=== PATIENT | male | born 1945 | race African-American/Black ===

== ENCOUNTER 2021-03-24 10:44 | Emergency (ER) | payer MEDICARE ==
[~2021-03-24] VITALS: Ht 175.3 cm; Wt 111.0 kg
[2021-03-24] MEDS ORDERED: VALACYCLOVIR HCL1 GM PO ×2 (14:26→15:13)
[2021-03-24] MEDS ORDERED: PERCOCET 5/325M1 TAB PO ×2 (14:26→15:14)
[2021-03-24] MEDS ORDERED: PREDNISONE20 MG PO ×2 (14:26→15:14)
[2021-03-24 14:30] VITALS: BP 107/55
[2021-03-24] MEDS ORDERED: TORADOL PO (15:14)
== END 2021-03-24 15:24 | disposition home or self-care (01) ==
LOC: ED 10:44
DX: B02.9 Zoster without complications (principal); I10 Essential (primary) hypertension

== ENCOUNTER 2021-09-27 09:06 | Inpatient (IN) | payer MEDICARE ==
[2021-09-27] VITALS (52 sets, daily range): BP systolic 97–150; BP diastolic 52–103
[~2021-09-27] VITALS: Ht 175.3 cm; Wt 100.0 kg
[~2021-09-27 09:06] MED LIST: PERCOCET 5/325M1 TAB PO; PREDNISONE20 MG PO; TORADOL PO; VALACYCLOVIR HCL1 GM PO
--- NOTE | 2021-09-27 09:07 | NUR ---
PATIENT TO ROOM VIA EMS.
[2021-09-27 09:36] LABS: HEMATOCRIT 41.5 % (39.0-50.0); HEMOGLOBIN 12.6 g/dl (14.0-18.0); IMMATURE GRANULOCYTES 0.2 % (0.0-5.0); MEAN CORPUSCULAR HGB 23.1 pG CALC (26.0-32.0); MEAN CORPUSCULAR HGB CONC 30.4 g/dL CAL (32.0-36.0); NEUT# 21.08 thou/uL (1.82-7.42); RED BLOOD COUNT 5.46 mill/uL (4.70-6.10); RED CELL DISTRI WIDTH 19.2 % (11.5-15.5)
[2021-09-27 09:46] LABS: PROTHROMBIN TIME 10.1 SECONDS (9.0-12.5)
[2021-09-27 09:54] LABS: ALBUMIN 3.6 g/dL (3.2-5.0); ALKALINE PHOSPHATASE 166 u/l (38-126); ANION GAP 18 (6-22 (CALC)); BILIRUBIN, TOTAL 0.2 mg/dL (0.0-1.4); BUN 26 mg/dL (8-23); BUN/CREATININE RATIO 17 (12-20 (CALC)); CARBON DIOXIDE 24 mmol/l (22-30); CHLORIDE 99 mmol/l (95-108); CREATININE 1.5 mg/dL (0.7-1.3); GFR FOR AFR.AMER. 55 ML/MIN (>=60 (CALC)); GFR OTHER RACES 45 ML/MIN (>=60 (CALC)); POTASSIUM 3.3 mmol/l (3.5-5.1); SGOT/AST 27 u/l (19-48); SODIUM 138 mmol/l (137-146); TOTAL PROTEIN 7.1 g/dL (6.3-8.2)
--- NOTE | 2021-09-27 11:47 | NUR ---
Reassessment of patient completed. No distress noted.
[2021-09-27 12:24] LABS: URINE BILIRUBIN - DIPSTICK NEGATIVE (NEGATIVE); URINE BLOOD DIPSTICK TRACE-INTACT (NEGATIVE); URINE COLOR YELLOW; URINE GLUCOSE - DIPSTICK NEGATIVE (NEGATIVE); URINE KETONE NEGATIVE (NEGATIVE); URINE LEUK ESTERASE NEGATIVE (NEGATIVE); URINE PROTEIN - DIPSTICK NEGATIVE (NEG-TRACE); URINE UROBILINOGEN - DIPSTICK 0.2 E.U./dL (0.2)
[2021-09-27 12:40] LABS: URINE NITRITE - DIPSTICK NEGATIVE (Negative)
--- NOTE | 2021-09-27 13:45 | NUR ---
Reassessment of patient completed. No distress noted.
[2021-09-27 13:56] LABS: C-REACTIVE PROTEIN 3.5 mg/dL (0-0.9); MAGNESIUM 1.8 mg/dL (1.6-2.3)
--- NOTE | 2021-09-27 15:03 | NUR ---
PATIENT TO ICU ROOM 8
[2021-09-27] MEDS ORDERED: METOPROLOL SUCC50 MG PO (15:48)
[2021-09-27] MEDS ORDERED: TAMSULOSIN HCL0.4 MG PO (15:48)
[2021-09-27] MEDS ORDERED: HYDROCHLOROT25 MG PO (15:48)
--- NOTE | 2021-09-27 16:00 | NUR ---
THIS NURSE TOOK OVER CARE OF PT FROM AIDAN GREENE. NIHSS PERFORMED AND SCORE OF 1 GIVEN. 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 BED SIDE SWALLOW EVAL PERFORMED AND PASSED. PT GIVEN HALF OF A TURKEY WRAP AND A WATER. SAFETY PRECAUTIONS IN PLACE.
--- NOTE | 2021-09-27 18:41 | NUR ---
ROUNDING COMPLETED. MEND SCORE UNCHANGED. PT ATE 100% OF DINNER W/ NO ASSISTANCE. SAFETY PRECAUTIONS MAINTAINED.
--- NOTE | 2021-09-27 19:00 | NUR ---
COMPLETED NIH STROKE ASSESSMENT AT BEDSIDE WITH AIDAN RAMOS. PT ALERT ORIENTED, FOLLOWING COMMANDS. 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 VITAL SIGNS ARE WITHIN NORMAL LIMITS. PT DENIES PAIN AT THIS TIME. CALL LIGHT AND PERSONAL BELONGINGS ARE WITHIN REACH. PT BEING CLOSELY MONITORED.
--- NOTE | 2021-09-27 19:00 | NUR ---
REPORT GIVEN TO AIDAN HAGEN. NIHSS PERFORMED AT BEDSIDE. PT SCORE REMAINS A 1 R/T PRE-EXISTING ISSUE W/ LUE.
--- NOTE | 2021-09-27 19:30 | NUR ---
PATIENT MEND EXAM PREFORMED AT THIS TIME NO CHANGES FROM PREVIOUS EXAM. PATIENT IS ALERT AND ORIENTED AT THIS TIME. SIDERAILS ARE UP CALL LIGHT IS WITHIN REACH.
--- NOTE | 2021-09-27 20:00 | NUR ---
MEND EXAM DONE AND NO CHANGE FROM PREVIOUS EXAM.
--- NOTE | 2021-09-27 20:32 | NUR ---
MEND EXAM REMAINS UNCHANGED AT THIS TIME. PATIENT ALERT AND ORIENTED X 3
--- NOTE | 2021-09-27 21:00 | NUR ---
MEND EXAM PREFORMED AND NO CHANGES FROM PRIOR EXAM. WILL CONTINUE TO MONITOR.
--- NOTE | 2021-09-27 21:29 | NUR ---
MEND EXAM DONE AT THIS TIME AND REMAINS UNCHANGED FROM PREVIOUS EXAM. PATIENT REMAINS ALERT AND ORIENTED AT THIS TIME. SIDERAILS ARE UP CALL LIGHT WITHIN REACH. WILL CONTINUE TO MONITOR.
--- NOTE | 2021-09-27 21:58 | NUR ---
PATIENT LAYING IN BED WATCHING TV AT THIS TIME. MEND EXAM PREFORMED AND NO NOTED CHANGES SINCE PREVIOUS EXAM. SIDERAILS ARE UP CALL LIGHT IS WITHIN REACH WILL CONTINUE TO MONITOR. PATIENT EDUCATED THAT MEND EXAM WILL NOW BE PREFORMED HOURLY AND PATIENT VERBALIZES UNDERSTANDING.
--- NOTE | 2021-09-27 23:01 | NUR ---
MEND EXAM REMAINS UNCHANGED AT THIS TIME.
[2021-09-28] VITALS (45 sets, daily range): BP systolic 53–154; BP diastolic 23–86
--- NOTE | 2021-09-28 00:01 | NUR ---
PATIENT RESTING IN BED AT THIS TIME. PATIENT DENIES ANY PAIN OR NEEDS AT THIS TIME. PATIENT MEND EXAM DONE AND REMAINS UNCHANGED AT THIS TIME FROM PREVIOUS REPORT. PATIENT CARDIA MONITOR SHOWING HR OF 81 AND SINUS RHYTHM. PATIENT IS ON ROOM AIR AND SPO2 CURRENTLY IS 97% SIDERAILS ARE UP CALL LIGHT IS WITHIN REACH WILL CONTINUE TO MONITOR.
--- NOTE | 2021-09-28 00:59 | NUR ---
MEND EXAM SHOWS NO CHANGES FROM PREVIOUS SCORE. WILL CONTINUE TO MONITOR.
--- NOTE | 2021-09-28 01:59 | NUR ---
PATIENT ALERT AND ORIENTED X 3 AT THIS TIME. MEND EXAM PREFORMED AND REMAINS UNCHANGED SINCE PREVIOUS EXAM. SIDERAILS ARE UP CALL LIGHT IS WITHIN REACH WILL CONTINUE TO MONITOR.
--- NOTE | 2021-09-28 03:06 | NUR ---
PATIENT AWAKEN AT THIS TIME AND MEND EXAM PREFORM AND NO CHANGES NOTED SINCE LAST EXAM. WILL CONTINUE TO MONIOTOR.
--- NOTE | 2021-09-28 04:00 | NUR ---
MEND EXAM SHOWS NO CHANGE.
[2021-09-28 04:58] LABS: HEMATOCRIT 36.7 % (39.0-50.0); HEMOGLOBIN 11.1 g/dl (14.0-18.0); MEAN CELL VOLUME 76.6 fL CALC (80.0-100.0); MEAN CORPUSCULAR HGB 23.2 pG CALC (26.0-32.0); MEAN CORPUSCULAR HGB CONC 30.2 g/dL CAL (32.0-36.0); RED BLOOD COUNT 4.79 mill/uL (4.70-6.10); RED CELL DISTRI WIDTH 18.6 % (11.5-15.5)
--- NOTE | 2021-09-28 05:02 | NUR ---
NO CHANGE IN MEND EXAM AT THIS TIME.
[2021-09-28 05:17] LABS: ANION GAP 10 (6-22 (CALC)); BUN 26 mg/dL (8-23); BUN/CREATININE RATIO 21 (12-20 (CALC)); CARBON DIOXIDE 26 mmol/l (22-30); CHLORIDE 107 mmol/l (95-108); CREATININE 1.3 mg/dL (0.7-1.3); GFR FOR AFR.AMER. > 60 ML/MIN (>=60 (CALC)); GFR OTHER RACES 53 ML/MIN (>=60 (CALC)); MAGNESIUM 1.8 mg/dL (1.6-2.3); SODIUM 140 mmol/l (137-146)
--- NOTE | 2021-09-28 06:06 | NUR ---
PATIENT AWAKEN FROM SLEEP AT THIS TIME. MEND EXAM GIVEN AND NO CHANGES NOTED FROM PREVIOUS EXAM AT THIS TIME.
--- NOTE | 2021-09-28 09:14 | NUR ---
PT IS ALERT AND ORIENTED X 3. LUNGS CLEAR WITH DIMINISHED BASES, RA. ABDOMEN DISTENDED, SOFT, BM 2 DAYS AGO. PT SEEN BY DR BOYLE THIS MORNING, NO DEFICITS NOTED. IVF LOWERED TO 50 ML/HR FROM 100 ML/HR. POTASSIUM 40 MEQ PROVIDED. FAMILY AT BEDSIDE AT THIS TIME. PT AWARE OF SCHEDULED MRI AND CHEST XRAY.
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
--- NOTE | 2021-09-28 20:07 | NUR ---
HEAD-TO-TOE ASSESSMENT COMPLETED. NIHSS COMPLETED, SCORE OF 1 FOR ATAXIA TO LUE R/T PRE-EXISTING CONDITION. VSS ON RA, O2 96%, HR 106 ST. PT REPOSITIONED ON TO R SIDE. SAFETY PRECAUTIONS IN PLACE.
--- NOTE | 2021-09-28 21:30 | NUR ---
PT O2 DROPPED TO 80% WHILE SLEEPING. THIS NURSE ASSESSED PT AND WOKE HIM UP. PT STATED HE FELT FINE, O2 SAT RETURNED TO 97%. ABOUT 10 MINUTES LATER PT WENT BACK TO SLEEP, O2 SAT DROPPED TO 82%. THIS NURSE APPLIED 2 L/MIN N/C. PT O2 SAT CURRENTLY 98%. ALL OTHER VS REMAIN STABLE.
--- NOTE | 2021-09-28 23:24 | NUR ---
ROUNDING COMPLETED. PT APPEARS TO BE RESTING COMFORTABLY. VSS ON 2 L/MIN N/C, O2 98%, HR 89 BPM, NSR. SAFETY PRECAUTIONS MAINTIANED.
[2021-09-29] VITALS (17 sets, daily range): BP systolic 64–130; BP diastolic 38–78
--- NOTE | 2021-09-29 01:37 | NUR ---
ROUNDING COMPLETED. PT APPEARS TO BE RESTING COMFORTABLY. VSS ON 2 L/MIN N/C, O2 99%, HR 81 BPM NSR. SAFETY PRECAUTIONS MAINTAINED.
--- NOTE | 2021-09-29 03:11 | NUR ---
ROUNDING COMPLETED. PT APPEARS TO BE RESTING COMFORTABLY. VSS ON 2 L/MIN N/C. O2 99%, HR 81 BPM NSR. SAFETY PRECAUTIONS MAINTAINED.
[2021-09-29 05:15] LABS: HEMOGLOBIN 11.2 g/dl (14.0-18.0); IMMATURE GRANULOCYTES 0.3 % (0.0-5.0); MEAN CELL VOLUME 78.7 fL CALC (80.0-100.0); MEAN CORPUSCULAR HGB 23.2 pG CALC (26.0-32.0); MEAN CORPUSCULAR HGB CONC 29.5 g/dL CAL (32.0-36.0); NEUT# 7.57 thou/uL (1.82-7.42); RED BLOOD COUNT 4.83 mill/uL (4.70-6.10); RED CELL DISTRI WIDTH 18.9 % (11.5-15.5)
[2021-09-29 05:26] LABS: BUN 23 mg/dL (8-23); BUN/CREATININE RATIO 19 (12-20 (CALC)); CARBON DIOXIDE 31 mmol/l (22-30); CHLORIDE 110 mmol/l (95-108); CREATININE 1.2 mg/dL (0.7-1.3); GFR FOR AFR.AMER. > 60 ML/MIN (>=60 (CALC)); GFR OTHER RACES 59 ML/MIN (>=60 (CALC)); SODIUM 143 mmol/l (137-146)
--- NOTE | 2021-09-29 05:30 | NUR ---
ROUNDING COMPLETED. PT APPEARS TO BE RESTING COMFORTABLY. VSS ON 2 L/MIN N/C, O2 100%, HR 83 BPM NSR. SAFETY PRECAUTIONS MAINTAINED.
[2021-09-29 05:36] LABS: ANION GAP 6 (6-22 (CALC)); POTASSIUM 4.1 mmol/l (3.5-5.1)
--- NOTE | 2021-09-29 08:46 | NUR ---
PT SEEN AWAKE, ALERT, ORIENTED X 3. PT STATES THAT HE FEELS WEAK STILL. LUNGS CLEAR, SLIGHTLY DECREASED IN BASES, RA. DR BOYLE HAS SEEN PT THIS AM, DISCUSSED REHAB AT FACILITY VS HOME. PT PREFERS HOME. NO ACUTE DISTRESS, PT ABLE TO FEED HIMSELF BREAKFAST.
--- NOTE | 2021-09-29 10:51 | NUR ---
PT ASSISTED OOB INTO CHAIR, ABLE TO BEAR WEIGHT WELL AND MOVE FEET. PT WITH URINAL BETWEEN LEGS PER LASIX GIVEN. PT AWARE OF PENDING TRANSFER TO MED/SURG.
--- NOTE | 2021-09-29 12:15 | NUR ---
PT TAKEN TO ROOM 278 WITHOUT INCIDENT, REPORT WAS TO [facility].
--- NOTE | 2021-09-29 12:18 | NUR ---
PT ARRIVED VIA STRETCHER WITH SADDLE STITCHING MACHINE OPERATOR AND NURSE TECH. PT ABLE TO TRANSFER TO BED WITH 1 PERSON ASSIST. TELE MONITOR IN [place], CONTINOUS MONITORING PER ED. STATES NO PAIN AT THIS TIME. FALL/SAFTEY PRECAUTION IN PLACE. CALL LIGHT WITHIN REACH.
--- NOTE | 2021-09-29 14:58 | NUR ---
PT SLEEPING UPON ENTERING ROOM. NO DISTRESS NOTED. BREATHING EVENA ND UNLABORED. IV PATENT. TELE MONITOR IN PLACE. CONTINOUS MONTIORING PER ED. FALL/SAFETY PRECAUTION IN PLACE. CALL LIGHT WITHIN REACH
--- NOTE | 2021-09-29 16:00 | NUR ---
PT RESTING WATCHING TV. STATES NO PAIN AT THIS TIME. TELE MONTIOR IN PLACE, COTNINOUS MONITORING PER ED. FALL/SAFTEY PRECAUTIONI IN PLACE. CALL LIGHT WITHINR REACH
--- NOTE | 2021-09-29 16:26 | NUR ---
FAMILY MEMBERS AT BEDSIDE
--- NOTE | 2021-09-29 19:15 | NUR ---
PATIENT ALERT AND ORIENTED. ABLE TO MAKE NEEDS KNOWN. ASSESSMENT COMPLETE. NO SIGNS OF DISTRESS NOTED. NO COMPLAINTS OF PAIN. BED REMAINS IN LOW POSITION. CALL SHERMAN IN REACH.
[2021-09-30] VITALS (8 sets, daily range): BP systolic 94–154; BP diastolic 57–82
--- NOTE | 2021-09-30 00:12 | NUR ---
CALL SHERMAN ANSWERED. URINAL EMPTIED, 175CC CLEAR YELLOW URINE. LOWERED HEAD OF BED SLIGHTLY PER PATIENT REQUEST. NO COMPLAINTS OF PAIN. NO DISTRESS NOTED. BED REMAINS IN LOW POSITION. CALL SHERMAN IN REACH.
--- NOTE | 2021-09-30 02:15 | NUR ---
PATIENT RESTING IN BED QUIETLY. NO SIGNS OF DISTRESS. NO COMPLAINTS OF PAIN. BED REMAINS IN LOW POSITION. CALL LIGHT IN REACH.
--- NOTE | 2021-09-30 04:00 | NUR ---
PATIENT RESTING IN BED. NO SIGNS OF DISTRESS. NO COMPLAINTS OF PAIN. BED REMAINS IN LOW POSITION. CALL LIGHT IN REACH.
[2021-09-30 05:04] LABS: HEMATOCRIT 39.7 % (39.0-50.0); HEMOGLOBIN 11.6 g/dl (14.0-18.0); IMMATURE GRANULOCYTES 0.6 % (0.0-5.0); MEAN CELL VOLUME 77.7 fL CALC (80.0-100.0); MEAN CORPUSCULAR HGB 22.7 pG CALC (26.0-32.0); MEAN CORPUSCULAR HGB CONC 29.2 g/dL CAL (32.0-36.0); NEUT# 10.52 thou/uL (1.82-7.42); RED BLOOD COUNT 5.11 mill/uL (4.70-6.10); RED CELL DISTRI WIDTH 19.7 % (11.5-15.5)
[2021-09-30 05:31] LABS: BUN 19 mg/dL (8-23); BUN/CREATININE RATIO 17 (12-20 (CALC)); CARBON DIOXIDE 31 mmol/l (22-30); CHLORIDE 107 mmol/l (95-108); CREATININE 1.1 mg/dL (0.7-1.3); GFR FOR AFR.AMER. > 60 ML/MIN (>=60 (CALC)); GFR OTHER RACES > 60 ML/MIN (>=60 (CALC)); MAGNESIUM 1.8 mg/dL (1.6-2.3); SODIUM 142 mmol/l (137-146)
[2021-09-30 05:32] LABS: ANION GAP 8 (6-22 (CALC)); POTASSIUM 3.7 mmol/l (3.5-5.1)
--- NOTE | 2021-09-30 07:16 | NUR ---
SHIFT CHANGE REPORT, PT RESTING IN BED WATCHING TV, ORIENTED, DENIES PAIN/DISCOMFORT, TELE MONITOR IN PLACE, CALL SHERMAN IN REACH AND BED LOCKED IN LOWEST POSITION.
--- NOTE | 2021-09-30 07:59 | NUR ---
ASSISTED TO RECLINER AT THIS TIME AND SET UP FOR MEAL, INCONTINENT OF BM AND ASHLEY-CARE GIVEN, DRIBBLES URINE, TELE MONITOR IN PLACE AND CALL SHERMAN IN REACH.
--- NOTE | 2021-09-30 11:29 | NUR ---
CONDITIN REMAINS STABLE, AMBULATED TO ROOM DOOR AND BACK TO RECLINER WITH PT, SET UP FOR MEAL AT THIS TIME, CALL SHERMAN IN REACH.
--- NOTE | 2021-09-30 12:12 | NUR ---
Patient presents up in bedside chair. His original Am Pac score was 8. He now has progressed to 10 and it is reccomended that he go to an ECF. I discussed this with him and he is agreeable. He is seen for sit to stand which he does with SBA. He is very tremulous with standing but manages to ambulate about 20 feet on a level surface with mod assist of 1 and a FWW. I encouraged continued sit to stand but no ambulation unless assisted. Our plan is to continue strengthening and increase his funcitonal training to independence
--- NOTE | 2021-09-30 16:00 | NUR ---
RESTING IN BED IN SUPINE POSITION AT THIS TIME, STABLE CONDITION.
--- NOTE | 2021-09-30 20:00 | NUR ---
PATIENT RESTING IN BED, WATCHING TV, DENIES PAIN OR DISCOMFORTS, SALINE LOCK ON LFA G20 PATENT FLUSHES WELL, REMAINS ON TELEMETRY SR97, ABDOMEN DISTENDED SOFT, ACTIVE BOWEL SOUNDS, ALERT ORIENTED, CLEAR SPEECH, CBREATHING UNLABORED, AFEBRILE, CALL LIGHT IN REACH.
--- NOTE | 2021-09-30 20:00 | NUR ---
RECEIVED REPORT FROM NURSE BURGESS, ASSUMED PATIENT CARE, CALL LIGHT IN REACH.
--- NOTE | 2021-09-30 23:29 | NUR ---
PATIENT RESTING IN BED, STILL AWAKE ANFD WATCHING TV, BREATHING ULBAORED CALL LIGHT IN REACH.
[2021-10-01] VITALS (7 sets, daily range): BP systolic 112–132; BP diastolic 61–77
--- NOTE | 2021-10-01 04:00 | NUR ---
PATIENT RESTING IN VBED, WITH EYES CLSOED, BREATHING EVEN AND UBLABOREED, DENIES PAIN AND DISCOMFORTS, CALL LIGHT AT REACH.
[2021-10-01 05:33] LABS: BUN 21 mg/dL (8-23); BUN/CREATININE RATIO 20 (12-20 (CALC)); CARBON DIOXIDE 30 mmol/l (22-30); CHLORIDE 108 mmol/l (95-108); GFR FOR AFR.AMER. > 60 ML/MIN (>=60 (CALC)); GFR OTHER RACES > 60 ML/MIN (>=60 (CALC)); SODIUM 142 mmol/l (137-146)
[2021-10-01 05:35] LABS: ANION GAP 8 (6-22 (CALC))
[2021-10-01 05:40] LABS: HEMOGLOBIN 11.2 g/dl (14.0-18.0); MEAN CELL VOLUME 77.9 fL CALC (80.0-100.0); MEAN CORPUSCULAR HGB CONC 29.5 g/dL CAL (32.0-36.0); RED BLOOD COUNT 4.88 mill/uL (4.70-6.10); RED CELL DISTRI WIDTH 19.7 % (11.5-15.5)
--- NOTE | 2021-10-01 07:00 | NUR ---
RECEIVE REPORT FROM NEYDA BERMUDEZ.
--- NOTE | 2021-10-01 08:00 | NUR ---
PATIENT ALERT AND ORIENTED X3. PATIENT STABLE AT THIS TIME DOES NOR REFER PAIN AT THIS TIME. PATIENT RESTING PLEASANT. PATIENT IS EDUCATED ABOUD MEDICATIONS AND NURSING PLAN FOR TODAY. PATIENT REFER UNDERSTAND. FALL AND SAFETY PRECAUTIONS IN PLACE. CALL LIGHT IS WITHIN REACH.
--- NOTE | 2021-10-01 11:24 | NUR ---
Pt resting in bed, he was alert and oriented x3. AROM ex performed to BLE in supine including heel slides, SAQ, hip abd/add and ankle pumps. Pt moved supine to sit with min assist and use of bed rail. Transfer to chair with RW and min assist. Sitting ex to BLE x 20 reps including ankle pumps, LAQ and marching. Pt reports moving at home but not doing much ex. He was encouraged to continue ex indep while in hosp and at home. Gait with RW 2 x 12' with min/mod assist, retro pulsiveness not noted today. BP 111/73 to 122/77, HR 89-84, 02 sats 97-98%. Pt left resting in chair with call zacarias/tray/phone in reach and no further needs reported. A- Pt with general weakness and decline in mobility. He would benefit from rehab to return to [facility] E[facility] P- Will follow until D/C to improve mobility skills and independence.
--- NOTE | 2021-10-01 16:34 | NUR ---
PATIENT STABLE AT THIS TIME. RESTING IN BED
--- NOTE | 2021-10-01 20:00 | NUR ---
AWAKE ALERT AND ORIENTED X 4 DENIES PAIN OR DISCOMFORT NERRO STATUS STABLE USES THE URIAL AT BEDSIDE DENIES PAIN OR DISCOMFORT.
--- NOTE | 2021-10-02 | NUR ---
RESTING QUIETLY IN BED SPEECH CLEAR AND APPROPRIATE DENIES PAIN OR DISCOFORT RESPIRATIONS EVEN AND UNLABOREDCARDIAC MONITOR SHOWS SINUS RHTHYM NO ECTOPY NOTED.
[2021-10-02 00:30] VITALS: BP 125/65
--- NOTE | 2021-10-02 04:03 | NUR ---
BUTTON SPINDLER SHOWED BRIEF RUN OF SINUS TACHYCARDIA PATIENT WAS OBSERVED USING THE URINAL AT BEDSIDE.NO C/O PAIN OR DISCOMFORT VOICED
[2021-10-02 05:01] VITALS: BP 129/71
[2021-10-02 05:49] LABS: HEMATOCRIT 35.4 % (39.0-50.0); HEMOGLOBIN 10.9 g/dl (14.0-18.0); IMMATURE GRANULOCYTES 0.4 % (0.0-5.0); MEAN CELL VOLUME 76.1 fL CALC (80.0-100.0); MEAN CORPUSCULAR HGB 23.4 pG CALC (26.0-32.0); MEAN CORPUSCULAR HGB CONC 30.8 g/dL CAL (32.0-36.0); NEUT# 9.52 thou/uL (1.82-7.42); RED BLOOD COUNT 4.65 mill/uL (4.70-6.10); RED CELL DISTRI WIDTH 19.6 % (11.5-15.5)
[2021-10-02 06:08] LABS: ALBUMIN 2.9 g/dL (3.2-5.0); ALKALINE PHOSPHATASE 113 u/l (38-126); ANION GAP 6 (6-22 (CALC)); BUN 17 mg/dL (8-23); BUN/CREATININE RATIO 18 (12-20 (CALC)); CARBON DIOXIDE 28 mmol/l (22-30); CHLORIDE 110 mmol/l (95-108); GFR FOR AFR.AMER. > 60 ML/MIN (>=60 (CALC)); GFR OTHER RACES > 60 ML/MIN (>=60 (CALC)); MAGNESIUM 1.7 mg/dL (1.6-2.3); POTASSIUM 3.8 mmol/l (3.5-5.1); SGOT/AST 29 u/l (19-48); SODIUM 140 mmol/l (137-146); TOTAL PROTEIN 5.8 g/dL (6.3-8.2)
[2021-10-02 06:11] LABS: BILIRUBIN, TOTAL 0.3 mg/dL (0.0-1.4)
--- NOTE | 2021-10-02 06:38 | NUR ---
AWAKE ALERT AND ORIENTED X3 DENIES PAIN OR DISCOMFORT AT THIS TIME
[2021-10-02 06:43] VITALS: BP 108/77
--- NOTE | 2021-10-02 07:00 | NUR ---
RECEIVE REPORT FROM CECILIA BERMUDEZ.
--- NOTE | 2021-10-02 08:00 | NUR ---
PATIENT ALERT AND ORIENTED X3. PATIENT STABLE AT THIS TIME. PT IS EDUCATED ABOUD POSSIBLE DC TODAY. MEDICATIONS AND NURSING PLAN. PT REFER UNDERSTAND. SAFE AND FALL PRECAUTIONS IN PLACE. CALL LIGHT IS WITH REACH.
--- NOTE | 2021-10-02 10:37 | NUR ---
Pt resting in bed. He stated he thought he would not have to do much today secondary to leaving. Reported being up to BR with nursing earlier. Pt was cooperative with treatment. AROM/gentle manual resist ex to BLE in supine x 25 reps including heel slides, SAQ, hip abd/add, low bridging x 10 reps. Pt moved supine to sit with min assist, cga/min assist to move sit to stand with vc to push off surfaces vs pulling on walker. Gait 2x 30' with cga/min assist. Pt was left in chair with callbell/phone and tray in reach. BP 114/79 to 129/71, 02 sats 97-96%. Pt HR was tachy ngozi 101 at rest, 122 after 1st walk and 126 after second walk, HR returned to low 100's after resting. Nursing notified of HR. Time with pt 45 min A- Pt requiring assist with mobility and with LE strength. He would benefit from rehab to return to [facility]. [facility] 12 ECF P- pt for transfer to rehab today, will follow [facility] [place]/javi
[2021-10-02 10:56] VITALS: BP 129/71
[2021-10-02] MEDS ORDERED: OMNICEF300 MG PO (11:08)
--- NOTE | 2021-10-02 12:53 | NUR ---
PATIENT RESTING IN CHAIR, STABLE AT HTIS TIME. PATIENT DISCHARGED TODAY.
--- NOTE | 2021-10-02 14:35 | NUR ---
Discharge instructions given. Patient verbalizes understanding of same. Discharged in stable condition via Wheelchair to [facility] with *Other. All belongings sent with pt.
--- NOTE | 2021-10-02 14:40 | NUR ---
PT DISCHARGE REPORT READY GIVED TO [facility].
== END 2021-10-02 15:56 | DRG 195 ==
LOC: ED 09:06 → ED-I 12:30 → ED 13:06 → ICU 13:07 → MS2 13:07
PROVIDERS: Family Medicine; Internal Medicine; Nurse Practitioner; ADMIT Hospitalist; ATTEND Hospitalist
DX: J18.9 Pneumonia, unspecified organism (principal); I10 Essential (primary) hypertension; E87.6 Hypokalemia; E86.0 Dehydration; M62.81 Muscle weakness (generalized); V89.2XXS Person injured in unspecified motor-vehicle accident, traffic, sequela; M16.12 Unilateral primary osteoarthritis, left hip; N40.0 Benign prostatic hyperplasia without lower urinary tract symptoms; T14.8XXS Other injury of unspecified body region, sequela; I25.10 Atherosclerotic heart disease of native coronary artery without angina pectoris; Z98.1 Arthrodesis status; Z20.822 Contact with and (suspected) exposure to COVID-19
CPT/HCPCS: J2060; Q3014; Q9967

== ENCOUNTER 2024-04-08 10:15 | Inpatient (IN) | payer MEDICARE ==
[2024-04-08] VITALS (27 sets, daily range): BP systolic 105–144; BP diastolic 54–90
[~2024-04-08] VITALS: Ht 175.3 cm; Wt 105.9 kg
[~2024-04-08 10:15] MED LIST changes: +HYDROCHLOROT25 MG PO; +METOPROLOL SUCC50 MG PO; +OMNICEF300 MG PO; +TAMSULOSIN HCL0.4 MG PO
[2024-04-08] MEDS ORDERED: ASPIRIN81 MG PO (10:26)
[2024-04-08] MEDS ORDERED: GABAPENTIN100 MG PO (10:26)
[2024-04-08] MEDS ORDERED: FEROSUL325 MG (10:26)
[2024-04-08] MEDS ORDERED: VITAMIN B121000 MCG (10:27)
[2024-04-08] MEDS ORDERED: POTASSIUM CHLO10 MEQ PO (10:27)
[2024-04-08 10:56] LABS: BASO% 0.5 % (0-3); EOS% 0.1 % (0-8); HEMATOCRIT 45.7 % (39.0-50.0); IMMATURE GRANULOCYTES 0.5 % (0.0-5.0); LYMPH% 10.5 % (15-41); MEAN CELL VOLUME 87.7 fL CALC (80.0-100.0); MEAN CORPUSCULAR HGB 26.9 pG CALC (26.0-32.0); MEAN CORPUSCULAR HGB CONC 30.6 g/dL CAL (32.0-36.0); MONO% 12.3 % (2-13); NEUT# 13.35 thou/uL (1.82-7.42); NEUT% 76.1 % (42-76); RED BLOOD COUNT 5.21 mill/uL (4.70-6.10); RED CELL DISTRI WIDTH 16.9 % (11.5-15.5)
[2024-04-08 11:09] LABS: ALBUMIN 3.5 g/dL (3.2-5.0); CREATININE 1.4 mg/dL (0.7-1.3); POTASSIUM 3.8 mmol/l (3.5-5.1); TOTAL PROTEIN 7.2 g/dL (6.3-8.2)
[2024-04-08 11:10] LABS: BILIRUBIN, TOTAL 0.8 mg/dL (0.2-1.3)
[2024-04-08] MEDS ORDERED: FUROSEMIDE 40 MG/4 ML SDV IV ONE (11:55)
[2024-04-08] MEDS ORDERED: AZITHROMYCIN 500 MG in SODIUM CHLORIDE 0.9% 500 ML IV ONE (11:55)
[2024-04-08 12:38] LABS: URINE BLOOD DIPSTICK Moderate (NEGATIVE); URINE GLUCOSE - DIPSTICK Negative (NEGATIVE); URINE KETONE Trace mg/dL (NEGATIVE); URINE LEUK ESTERASE Negative (NEGATIVE); URINE NITRITE - DIPSTICK Negative (Negative); URINE PH 5.5 (4.5-8.0); URINE PROTEIN - DIPSTICK >=300 mg/dL (NEG-TRACE); URINE SPECIFIC GRAVITY >=1.030
[2024-04-08 12:49] LABS: URINE COLOR Dark yellow
[2024-04-08 12:51] LABS: URINE BACTERIA FEW hpf; URINE EPITHELIAL CELLS MANY EPI/hpf (0-FEW); URINE MUCUS MANY hpf (NONE-FEW)
[2024-04-08] MEDS ORDERED: ACETAMINOPHEN 325 MG/TAB PO PRN (18:45)
[2024-04-08] MEDS ORDERED: MAGNESIUM HYDROXIDE 30 ML UDC PO PRN (18:45)
[2024-04-08] MEDS ORDERED: METOPROLOL TARTRATE 50 MG/TAB PO ONE (18:50)
[2024-04-08] MEDS ORDERED: ENOXAPARIN SODIUM 40 MG/0.4 ML SYR SC SCH (21:00)
[2024-04-09 04:24] VITALS: BP 119/59
[2024-04-09 07:45] VITALS: BP 111/59
[2024-04-09] MEDS ORDERED: hydroCHLOROthiazide 25 MG/TAB PO SCH (09:00)
[2024-04-09] MEDS ORDERED: METOPROLOL SUCCINATE 50 MG/TAB PO SCH (09:00)
[2024-04-09] MEDS ORDERED: ASPIRIN 81 MG/TAB PO SCH (09:00)
[2024-04-09] MEDS ORDERED: TAMSULOSIN HCL 0.4 MG CAP PO SCH (09:00)
[2024-04-09 10:45] VITALS: BP 117/63
[2024-04-09] MEDS ORDERED: FUROSEMIDE 40 MG/4 ML SDV IV ONE (11:05)
[2024-04-09] MEDS ORDERED: LACTATED RINGER'S 1,000 ML IV SCH (11:30)
[2024-04-09] MEDS ORDERED: IPRATROPIUM-Albuterol 0.5MG-2.5MG/3 ML IN SCH (12:00)
[2024-04-09] MEDS ORDERED: AZITHROMYCIN 500 MG in SODIUM CHLORIDE 0.9% 500 ML IV SCH (12:00)
[2024-04-09] MEDS ORDERED: CEFEPIME HYDROCHLORIDE 2 GM in SODIUM CHLORIDE 0.9% 100 ML IV SCH (12:30)
[2024-04-09] MEDS ORDERED: VANCOMYCIN HCL 1 GM in SODIUM CHLORIDE 0.9% 250 ML IV SCH (13:00)
[2024-04-09] MEDS ORDERED: DOXYCYCLINE HYCLATE 100 MG in SODIUM CHLORIDE 0.9% 100 ML IV SCH (15:00)
[2024-04-09 17:04] VITALS: BP 100/60
[2024-04-09 19:14] VITALS: BP 119/68
[2024-04-10] VITALS (9 sets, daily range): BP systolic 104–128; BP diastolic 56–69
[2024-04-10 05:44] LABS: BASO% 0.4 % (0-3); EOS% 1.1 % (0-8); HEMATOCRIT 40.6 % (39.0-50.0); HEMOGLOBIN 12.2 g/dl (14.0-18.0); IMMATURE GRANULOCYTES 1.9 % (0.0-5.0); LYMPH% 9.8 % (15-41); MEAN CELL VOLUME 88.6 fL CALC (80.0-100.0); MEAN CORPUSCULAR HGB 26.6 pG CALC (26.0-32.0); MONO% 8.4 % (2-13); NEUT# 13.33 thou/uL (1.82-7.42); NEUT% 78.4 % (42-76); RED BLOOD COUNT 4.58 mill/uL (4.70-6.10)
[2024-04-10 06:03] LABS: CREATININE 1.1 mg/dL (0.7-1.3); MAGNESIUM 1.8 mg/dL (1.6-2.3); POTASSIUM 3.3 mmol/l (3.5-5.1)
[2024-04-10 06:06] LABS: ALBUMIN 2.4 g/dL (3.2-5.0); BILIRUBIN, TOTAL 0.3 mg/dL (0.2-1.3); TOTAL PROTEIN 5.4 g/dL (6.3-8.2)
[2024-04-10] MEDS ORDERED: POTASSIUM CHLORIDE 20 MEQ/PKT POWDER PO SCH (09:00)
[2024-04-10] MEDS ORDERED: METOPROLOL SUCCINATE 100 MG/TAB PO SCH (09:30)
[2024-04-11] VITALS (9 sets, daily range): BP systolic 98–131; BP diastolic 44–60
[2024-04-11 06:11] LABS: BASO% 0.3 % (0-3); EOS% 1.3 % (0-8); HEMOGLOBIN 12.5 g/dl (14.0-18.0); IMMATURE GRANULOCYTES 2.3 % (0.0-5.0); LYMPH% 10.5 % (15-41); MEAN CELL VOLUME 86.8 fL CALC (80.0-100.0); MEAN CORPUSCULAR HGB 27.1 pG CALC (26.0-32.0); MEAN CORPUSCULAR HGB CONC 31.3 g/dL CAL (32.0-36.0); MONO% 7.2 % (2-13); NEUT# 13.79 thou/uL (1.82-7.42); NEUT% 78.4 % (42-76); RED BLOOD COUNT 4.61 mill/uL (4.70-6.10); RED CELL DISTRI WIDTH 17.1 % (11.5-15.5)
[2024-04-11 06:18] LABS: ALBUMIN 2.4 g/dL (3.2-5.0); BILIRUBIN, TOTAL 0.4 mg/dL (0.2-1.3); CREATININE 1.1 mg/dL (0.7-1.3); MAGNESIUM 1.7 mg/dL (1.6-2.3); POTASSIUM 3.1 mmol/l (3.5-5.1); TOTAL PROTEIN 5.5 g/dL (6.3-8.2)
[2024-04-11] MEDS ORDERED: POTASSIUM CHLORIDE 20 MEQ/PKT POWDER PO SCH (12:00)
[2024-04-12] VITALS (10 sets, daily range): BP systolic 98–115; BP diastolic 49–60
[2024-04-12 05:16] LABS: BASO% 0.4 % (0-3); EOS% 1.3 % (0-8); HEMATOCRIT 39.7 % (39.0-50.0); HEMOGLOBIN 12.5 g/dl (14.0-18.0); IMMATURE GRANULOCYTES 2.4 % (0.0-5.0); MEAN CELL VOLUME 85.4 fL CALC (80.0-100.0); MEAN CORPUSCULAR HGB 26.9 pG CALC (26.0-32.0); MEAN CORPUSCULAR HGB CONC 31.5 g/dL CAL (32.0-36.0); MONO% 6.5 % (2-13); NEUT# 13.58 thou/uL (1.82-7.42); NEUT% 78.4 % (42-76); RED BLOOD COUNT 4.65 mill/uL (4.70-6.10)
[2024-04-12 05:25] LABS: ALBUMIN 2.3 g/dL (3.2-5.0); BILIRUBIN, TOTAL 0.4 mg/dL (0.2-1.3); CREATININE 0.9 mg/dL (0.7-1.3); MAGNESIUM 1.7 mg/dL (1.6-2.3); POTASSIUM 3.4 mmol/l (3.5-5.1); TOTAL PROTEIN 5.4 g/dL (6.3-8.2)
[2024-04-12] MEDS ORDERED: PIPERACILLIN Sodium-Tazobactam 3.375 GM in SODIUM CHLORIDE 0.9% 100 ML IV SCH (12:00)
[2024-04-12] MEDS ORDERED: VANCOMYCIN HCL 1,250 MG in SODIUM CHLORIDE 0.9% 225 ML IV SCH ×2 (12:00→13:00)
[2024-04-13] VITALS (7 sets, daily range): BP systolic 98–130; BP diastolic 48–65
[2024-04-13 05:58] LABS: BASO% 0.5 % (0-3); EOS% 1.8 % (0-8); HEMOGLOBIN 12.7 g/dl (14.0-18.0); IMMATURE GRANULOCYTES 2.4 % (0.0-5.0); LYMPH% 12.2 % (15-41); MEAN CELL VOLUME 85.5 fL CALC (80.0-100.0); MEAN CORPUSCULAR HGB 27.1 pG CALC (26.0-32.0); MEAN CORPUSCULAR HGB CONC 31.8 g/dL CAL (32.0-36.0); MONO% 6.3 % (2-13); NEUT# 11.39 thou/uL (1.82-7.42); NEUT% 76.8 % (42-76); RED BLOOD COUNT 4.68 mill/uL (4.70-6.10); RED CELL DISTRI WIDTH 16.9 % (11.5-15.5)
[2024-04-13 06:10] LABS: ALBUMIN 2.4 g/dL (3.2-5.0); BILIRUBIN, TOTAL 0.4 mg/dL (0.2-1.3); CREATININE 0.9 mg/dL (0.7-1.3); MAGNESIUM 1.8 mg/dL (1.6-2.3); POTASSIUM 3.5 mmol/l (3.5-5.1); TOTAL PROTEIN 5.6 g/dL (6.3-8.2)
[2024-04-14] VITALS (8 sets, daily range): BP systolic 96–116; BP diastolic 43–69
[2024-04-14 05:31] LABS: BASO% 0.4 % (0-3); EOS% 1.9 % (0-8); HEMOGLOBIN 12.5 g/dl (14.0-18.0); IMMATURE GRANULOCYTES 2.1 % (0.0-5.0); LYMPH% 12.1 % (15-41); MEAN CELL VOLUME 85.3 fL CALC (80.0-100.0); MEAN CORPUSCULAR HGB 27.4 pG CALC (26.0-32.0); MEAN CORPUSCULAR HGB CONC 32.1 g/dL CAL (32.0-36.0); NEUT# 12.17 thou/uL (1.82-7.42); NEUT% 78.5 % (42-76); RED BLOOD COUNT 4.57 mill/uL (4.70-6.10)
[2024-04-14 05:32] LABS: ALBUMIN 2.4 g/dL (3.2-5.0); BILIRUBIN, TOTAL 0.4 mg/dL (0.2-1.3); MAGNESIUM 1.8 mg/dL (1.6-2.3); POTASSIUM 3.6 mmol/l (3.5-5.1); TOTAL PROTEIN 5.6 g/dL (6.3-8.2)
[2024-04-15 01:00] VITALS: BP 103/53
[2024-04-15 05:11] LABS: BASO% 0.3 % (0-3); EOS% 1.7 % (0-8); HEMOGLOBIN 12.6 g/dl (14.0-18.0); IMMATURE GRANULOCYTES 2.1 % (0.0-5.0); LYMPH% 12.6 % (15-41); MEAN CELL VOLUME 85.5 fL CALC (80.0-100.0); MEAN CORPUSCULAR HGB 26.9 pG CALC (26.0-32.0); MEAN CORPUSCULAR HGB CONC 31.5 g/dL CAL (32.0-36.0); MONO% 3.7 % (2-13); NEUT# 12.55 thou/uL (1.82-7.42); NEUT% 79.6 % (42-76); RED BLOOD COUNT 4.68 mill/uL (4.70-6.10); RED CELL DISTRI WIDTH 16.9 % (11.5-15.5)
[2024-04-15 05:44] VITALS: BP 105/47
[2024-04-15 05:52] LABS: ALBUMIN 2.6 g/dL (3.2-5.0); BILIRUBIN, TOTAL 0.3 mg/dL (0.2-1.3); MAGNESIUM 1.9 mg/dL (1.6-2.3); TOTAL PROTEIN 5.9 g/dL (6.3-8.2)
[2024-04-15 05:53] LABS: POTASSIUM 4.4 mmol/l (3.5-5.1)
[2024-04-15 06:40] VITALS: BP 105/54
[2024-04-15 11:05] VITALS: BP 107/55
[2024-04-15] MEDS ORDERED: METOPROLOL100 M1 PO (11:24)
[2024-04-15] MEDS ORDERED: OMNICEF300 MG PO (11:25)
[2024-04-15] MEDS ORDERED: VANCOMYCIN HCL 1 GM in SODIUM CHLORIDE 0.9% 250 ML IV SCH (15:00)
== END 2024-04-15 13:34 | DRG 871 ==
LOC: ED 10:15 → ED-I 10:31 → ED 10:31 → MS2 15:28
PROVIDERS: Emergency Medicine; Nurse Practitioner Family; ADMIT Internal Medicine; ATTEND Internal Medicine
DX: A41.9 Sepsis, unspecified organism (principal); J18.9 Pneumonia, unspecified organism; J96.01 Acute respiratory failure with hypoxia; N17.9 Acute kidney failure, unspecified; I24.89 Other forms of acute ischemic heart disease; R65.20 Severe sepsis without septic shock; I10 Essential (primary) hypertension; F03.90 Unspecified dementia, unspecified severity, without behavioral disturbance, psychotic disturbance, mood disturbance, and anxiety; N40.0 Benign prostatic hyperplasia without lower urinary tract symptoms
CPT/HCPCS: J0456; J0692; J0696; J1650; J1940; J2543; J3370